=== PATIENT | female | born 1995 | race Caucasian/White ===

== ENCOUNTER 2018-06-15 10:02 | Inpatient (IN) | payer OTHER ==
[~2018-06-15] VITALS: Ht 167.6 cm; Wt 54.4 kg
--- NOTE | 2018-06-17 14:37 | NUR ---
PRE ASSESSMENT: A 22 year old female in intake. She is A/O X 4 with a steady gait. Her pupils are pinpoint. She is fidgety and presents with anxious mood and congruent affect. BP 115/77 P 116 R 16 T 98.0 02sat 98% She reports taking 1-2 mg of Xanax PO daily X 1 month. Last used 1 mg on 06/15/18.She reports smoking 1/2 Gm Heroin daily X 2 months in this pattern. Last smoked 2-3 hits this AM at 0930. She also reports smoking 1/2 gm Methamphetamine daily x 1 year. Last smoked 2-3 hits this am. She denies S/i and H/I. She denies PMH but does report being on 5150 when she was 18 years old with vague details as of why. She denies Sz history. She denies allergies. Will assess Pt on unit.
[2018-06-17 14:47] VITALS: BP 115/77
[2018-06-17] MEDS ORDERED: ONDANSETRON HCL 4 MG TABLET PO PRN (15:00)
[2018-06-17] MEDS ORDERED: MIRALAX 17 GM POWD.PACK PO PRN (15:00)
[2018-06-17] MEDS ORDERED: LOPERAMIDE HCL 2 MG CAPSULE PO PRN ×2 (15:00)
[2018-06-17] MEDS ORDERED: MAGNESIUM HYDROXIDE 30 ML LIQUID UDC PO PRN (15:00)
[2018-06-17] MEDS ORDERED: METHOCARBAMOL 750 MG TABLET PO PRN (15:00)
[2018-06-17] MEDS ORDERED: MAG HYDROX/AL HYDROX/SIMETH 30 ML LIQUID UDC PO PRN (15:00)
[2018-06-17] MEDS ORDERED: BUPRENORPHINE HCL 2 MG TAB.SUBL SL PRN (15:00)
[2018-06-17] MEDS ORDERED: ACETAMINOPHEN 325 MG TABLET PO PRN (15:00)
[2018-06-17] MEDS ORDERED: ONDANSETRON 4 MG/2 ML VIAL IM PRN (15:00)
[2018-06-17 15:07] LABS: *URINE HCG, QUAL NEGATIVE (NEGATIVE)
[2018-06-17 15:22] LABS: *AMPHETAMINE, URINE POSITIVE (NEGATIVE); *BARBITURATE, URINE NEGATIVE (NEGATIVE); *CANNABINOID, URINE POSITIVE (NEGATIVE); *COCCAINE, URINE NEGATIVE (NEGATIVE); *OPIATE, URINE POSITIVE (NEGATIVE); *PHENCYCLIDINE SCREEN,URINE NEGATIVE (NEGATIVE)
[2018-06-17] MEDS ORDERED: DIAZEPAM 5 MG TABLET PO PRN (15:30)
[2018-06-17] MEDS ORDERED: DIAZEPAM 10 MG TABLET PO PRN ×2 (15:30)
--- NOTE | 2018-06-17 15:50 | NUR ---
ADMISSION: Pt admitted for medically supervised withdrawal of Benzos and Opiates. She also uses Meth daily. Skin and body check completed.She has scars on her wrist and states she used to be a cutter but hasn't cut in a few years. She is 5 ft 6 inches and weighs 120 Lbs. She is mildly intoxicated with pinpoint pupils. Her skin is warm and dry.Her speech is soft and slightly slurred.COWS and CIWA deferred at this time. UDS and HCG collected. She presents with blunted affect and depressed mood. She denies S/I and H/I. She denies seizure hx. She denies allergies. She states she takes no home meds but did take antidepressants 5 years ago and doesn't think she needs them. Depression is her PMH. She had a suicide attempt at age 15 by trying to hang herself and was put on 5150 hold. She also voiced suicidal ideations x 2 at age 18 and was put on a hold x 2. V/S BP 115/77 P 116 R 16 T 98.0 02sat 98% Substance Use History: She reports taking 1-2 mg of Xanax PO daily X 1 month. Last used 1 mg on 06/15/18. She used Xanax Heroin and Meth for the first time 8 years ago. She reports smoking 1/2 Gm Heroin daily X 2 months in this pattern. Last smoked 2-3 hits this AM at 0930. She also reports smoking 1/2 gm Methamphetamine daily x 1 year. Last smoked 2-3 hits this am at 0930 She reports she has used IV a couple of times. The last time she used IV was in January and she overdosed. She was able to just smoke pot and drink ETOH for 3 years up until 1 year ago. She states she is having legal troubles,financial problems and relationship problems due to her drug use but is unable to stop despite negative consequences. She states the withdrawal s/s which include sweats,chills,body aches,anxiety,N/V are too much for her to handle on her own. She states the triggers that caused her to start using Meth and Heroin again after 3 years is that she got impatient and felt like her life should have gotten better quicker and couldn't handle negative emotions associated with that. She states she is unable to hold a job when using and exchanges sex for drugs when needed. Treatment history includes [facility] in [facility] for 28 days at age 17 and [facility] at age 18. She is not sure what will be different this time but states she wants a better life and feels very tired of living the way she is living. Oriented Pt to staff and unit. Reassured Pt that Nursing staff is available 18/06 and to utilize staff. Will provide safe and supportive environment. Addendum: 06/17/18 at 1651 by COREY TRAN RN Pt's UDS is positive for cannabis. She reports smoking Marijuana 1 joint, 2-3 X weekly. Last smoked 2 days ago on 06/15/18. Addendum: 06/17/18 at 1823 by COREY TRAN RN She denies a PCP.
[2018-06-17 16:00] VITALS: BP 109/61
--- NOTE | 2018-06-17 19:01 | NUR ---
END O F SHIFT: Pt was newly admitted this afternoon. She is not displaying S/S of W/D at this time and came in mildly intoxicated from Heroin and Meth use this morning. She is resting in bed and watching TV. Will pass shift report to oncoming night nurse.
--- NOTE | 2018-06-17 19:30 | NUR ---
START OF SHIFT Pt is a 22 y/o female admitted for medically supervised withdrawal from Benzos and Opiates.Pt received in room,resting in bed,watching TV.Pt is A/A/O X 4, c/o feeling tired with low energy.Appears dishevelled;Mood is sad and depressed;she denies having any suicidal thoughts at this time.She is not c/o any s/s of withdrawals at this time,stated that she used Heroin and Meth today in the morning.No c/o pain or distress noted,breathing is even and non labored,all safety measures in place,call weems is within reach,will continue to monitor.
[2018-06-17 19:32] LABS: BASOPHILS % (AUTO) 0.7 % (0.0-2.0); EOSINOPHILS # (AUTO) 0.1 K/uL (0.0-0.7); EOSINOPHILS % (AUTO) 2.9 % (0.0-7.0); HEMATOCRIT 39.2 % (31.2-41.9); HEMOGLOBIN 13.3 g/dL (10.9-14.3); LYMPHOCYTES # (AUTO) 1.8 K/uL (20.0-40.0); LYMPHOCYTES % (AUTO) 35.8 % (20.5-51.5); MEAN CORPUSCULAR HEMOGLOBIN 31.6 uug (24.7-32.8); MEAN CORPUSCULAR HGB CONC 34 g/dL (32.3-35.6); MONOCYTES # (AUTO) 0.4 K/uL (2.0-10.0); NEUTROPHILS # (AUTO) 2.6 K/uL (1.8-8.9); NEUTROPHILS % (AUTO) 51.6 % (38.5-71.5); PLATELET COUNT (AUTO) 247 K/uL (179-408); RED BLOOD CELL COUNT(AUTO) 4.22 MIL/uL (3.63-4.92)
[2018-06-17 19:46] LABS: AMYLASE 25 U/L (25-115); ETHANOL < 3 MG/DL (0-0); LIPASE 112 U/L (73-393)
[2018-06-17 19:51] LABS: ALANINE AMINOTRANSFERASE 28 U/L (14-59); ALKALINE PHOSPHATASE 48 U/L (50-136); ASPARTATE AMINOTRANSFERASE 14 U/L (15-37); BILIRUBIN,TOTAL 0.4 mg/dL (0.2-1.0); CARBON DIOXIDE 30 mmol/L (21-32); CHLORIDE 104 mmol/L (98-107); CREATININE 0.6 mg/dL (0.6-1.3); GLUCOSE 92 mg/dL (74-106); MAGNESIUM 2.1 mg/dL (1.8-2.4); POTASSIUM 3.7 mmol/L (3.5-5.1); TOTAL PROTEIN, SERUM 6.6 g/dL (6.4-8.2); UREA NITROGEN, BLOOD 13 mg/dL (7-18)
[2018-06-17 20:00] VITALS: BP 103/65
[2018-06-17] MEDS ORDERED: DIAZEPAM 10 MG TABLET PO SCH (21:00)
--- NOTE | 2018-06-17 22:00 | NUR ---
PT SEEN RESTING IN BED WITH EYES CLOSED,APPEARS TO BE ASLEEP SHE WENT DOWN TO SMOKE X 1,HAS BEEN IN BED ALL THE TIME.NO CO PAIN OR DISTRESS NOTED,WILL CONTINUE TO MONITOR.
[2018-06-18] VITALS: BP 101/62
--- NOTE | 2018-06-18 | NUR ---
COWS DEFERRED DUE TO PT BEING ASLEEP.V/S ARE STABLE.NO C/O PAIN OR DISTRESS NOTED.ALL SAFETY MEASURES IN PLACE WITH CALL PACHECO WITHIN REACH.WILL CONTINUE TO MONITOR.
[2018-06-18 04:00] VITALS: BP 110/73
--- NOTE | 2018-06-18 04:00 | NUR ---
COWS-8.PT IS FEELING ANXIOUS WITH HOT AND COLD FLASHES,C/O MYALGIA AND RESTLESS LEGS.
--- NOTE | 2018-06-18 04:00 | NUR ---
COWS=8.PT IS FEELING ANXIOS WITH HOT AND COLD FLASHES,C/O RESTLESS LEGS AND MYALGIA.
[2018-06-18] MEDS: CLONIDINE HCL 0.1 MG TABLET PO PRN (04:25)
--- NOTE | 2018-06-18 04:25 | NUR ---
PRN MEDS PT C/O ANXIETY/HOT,COLD FLASHES AND MYALGIA.PRN CLONIDINE 0.1MG PO AND ROBAXIN 750MG PO GIVEN.WILL MONITOR FOR EFFECTIVENESS.
--- NOTE | 2018-06-18 05:30 | NUR ---
PRN F/U PT IS CALM AND RESTING IN BED WITH EYES CLOSED.
--- NOTE | 2018-06-18 06:54 | NUR ---
END OF SHIFT Pt is a 22 y/o female admitted for medically supervised withdrawal from Benzos and Opiates.Pt is A/O X 4, c/o feeling tired with low energy.Appears dishevelled;Mood is sad and depressed;she denies having any suicidal thoughts at this time.LAST COWS is 8.PRN meds Clonidine and Robaxin were given and were effective.Pt slept 9 hours,fluid intake was 1000 mls,voided x 2.No c/o pain or distress noted at this time,breathing is even and non labored,all safety measures in place,call weems is within reach,will continue to monitor.
--- NOTE | 2018-06-18 07:45 | NUR ---
START OF SHIFT Pt is a 22 y/o female admitted for medically supervised withdrawal from benzos and opiates. Received pt in room, laying in bed, has a disheveled appearance, cooperative. Pt presents sweating, nausea, piloerection of the skin, nasal congestion, runny nose, sinus pressure, sinus headache, generalized pain 4/10, "feeling heavy," strange sound in the ear, pt states, "like a blast, a high pitch sound, happened a couple times already," fine tremors, no energy, depressive mood, restlessness, anxiety, yawning, pupils larger than normal. HR: 101. Encouraged pt to do deep breathing exercises for relaxation and to increase fluids as tolerated for hydration. Last COWS 8, clonidine and robaxin PRN given during restaurant shift leader. Side rails upx2, bed in low position, call light is within reach. Safety measures in place. Will continue to monitor closely.
[2018-06-18 08:00] VITALS: BP 101/60
--- NOTE | 2018-06-18 08:00 | NUR ---
COWS 17 Received pt in room, laying in bed, has a disheveled appearance. Pt presents pupils larger than normal, sweating, nausea, piloerection of the skin, nasal congestion, runny nose, sinus pressure, sinus headache, generalized pain 03/05, c/o "feeling heavy," strange sound in the ear, pt states, "like a blast, a high pitch sound, happened a couple times already," fine tremors, no energy, depressive mood, restlessness, anxiety, yawning. HR: 101. Encouraged pt to do deep breathing exercises for relaxation and to increase fluids as tolerated for hydration. Pt refused PRNs at this time. Requests to have ibuprofen later if headache persists. Addendum: 06/18/18 at 1931 by FLASH MORALES RN SHANIQUE Chinchilla
[2018-06-18] MEDS: MULTIVITAMINS,THERAPEUTIC TABLET PO SCH (08:29)
[2018-06-18] MEDS: BUPRENORPHINE HCL 2 MG TAB.SUBL SL SCH ×4 (08:30→21:31)
[2018-06-18] MEDS: DIAZEPAM 10 MG TABLET PO SCH ×2 (08:30→21:32)
[2018-06-18] MEDS ORDERED: TUBERCULIN,PURIF.PROT.DERIV. 5 TU/0.1 ML TEST ID ONE (09:00)
[2018-06-18] MEDS ORDERED: 5 DAY TAPER BUPRENORPHINE -SERENITY PROTOCOL SL PRN (09:00)
[2018-06-18] MEDS ORDERED: 3 DAY TAPER OF VALIUM-SERENITY PROTOCOL PO PRN (09:00)
[2018-06-18 12:00] VITALS: BP 109/62
[2018-06-18] MEDS: IBUPROFEN 600 MG TABLET PO PRN (12:50)
--- NOTE | 2018-06-18 12:50 | NUR ---
COWS 16 HR: 96. Pt continues to presents pupils larger than normal, sweating, nausea, piloerection of the skin, nasal congestion, runny nose, sinus pressure, sinus headache, generalized pain 4/10, fine tremors, no energy, depressive mood, restlessness, anxiety, agitation, yawning. Pt refused PRNs at this time. Ibuprofen given for sinus headache 5/10 pain. Encouraged pt to use non-pharmalogical methods for distraction and relaxation. Addendum: 06/18/18 at 1931 by FLASH MORALES RN SHANIQUE Bryant
--- NOTE | 2018-06-18 12:50 | NUR ---
PRN ibuprofen 600 mg po prn given for c/o sinus headache and pressure 5/10. Will monitor and reassess.
--- NOTE | 2018-06-18 13:50 | NUR ---
REASSESSMENT Pt reports ibuprofen as effective in decreasing sinus headache. will continue to monitor.
[2018-06-18] MEDS ORDERED: DIAZEPAM 5 MG TABLET PO SCH (15:00)
[2018-06-18 16:00] VITALS: BP 101/68
--- NOTE | 2018-06-18 16:30 | NUR ---
COWS 17 HR: 91. Pt states attending groups had given her increased anxiety. Pt continues to presents pupils larger than normal, sweating, generalized pain, intermittent nausea, piloerection of the skin, nasal congestion, runny nose, sinus pressure, sinus headache, fine tremors, no energy, depressive mood, lethargy, restlessness, anxiety, agitation, yawning. Pt refused PRNs at this time. Encouraged pt to use non-pharmalogical methods such as deep breathing exercises for distraction and relaxation. Addendum: 06/18/18 at 1932 by FLASH MORALES RN SHANIQUE Chinchilla
--- NOTE | 2018-06-18 18:32 | NUR ---
END OF SHIFT Last COWS 17 @1600. Pt has been isolative in room but went to groups stating that it has increased her anxiety. Pt has received ibuprofen 600mg po prn for sinus headache and was effective. Pt ate 50/50/75% of meals. Fluid intake 1500ml, voided x4, bm 0. Safety measures in place. Endorsement will be given to fast food shift supervisor nurse.
--- NOTE | 2018-06-18 19:30 | NUR ---
Start of shift note Received report from day shift Nurse. Patient is a 22 year old female admitted for Benzo/Opiate Withdrawal. Patient is on 3 day Valium and 5 day Subutex taper. Patient was given PRN Motrin. Last COWS 17 and CIWA 16. Per day shift , Patient will want something for sleep tonight. Patient in group at this time. Safety measures in place. Call light in reach. Will continue to monitor.
[2018-06-18 20:00] VITALS: BP 115/71
--- NOTE | 2018-06-18 20:00 | NUR ---
COWS and CIWA assessment Patient with flat affect. Patient states she anxious 6/10, noted restless, c/o hot and cold sweats, chills, goose bumps, yawning, abdominal cramping, stuffy nose, difficulty sleeping and muscle aches. COWS 16 and CIWA 13.
[2018-06-18] MEDS: diphenhydrAMINE 50 MG CAPSULE PO PRN (21:31)
--- NOTE | 2018-06-18 21:31 | NUR ---
PRN Benadryl administration Patient requests for sleep aid. Will monitor for effectiveness
[2018-06-19] VITALS: BP 99/60
--- NOTE | 2018-06-19 | NUR ---
PRN Benadryl re-assessment /COWS and CIWA Deferred Patient lying in bed with eyes closed. Respiration even and unlabored. Will continue to monitor.
--- NOTE | 2018-06-19 04:00 | NUR ---
COWS and CIWA assessment Patient lying in bed with eyes closed. Respiration even and unlabored. VS refused. Will continue to monitor.
--- NOTE | 2018-06-19 07:28 | NUR ---
End of shift note Patient Slept 8 hours. Fluid Intake 355 ml. Voided x 1. No BM . Monitored patient throughout shift. Patient compliant with medication and treatment plan. Scheduled medication and taper given as ordered, tolerated well and no adverse reaction. Patient states medications are effective in controlling her withdrawal symptoms. Patient presents with anxiety, restlessness, yawning, abdominal cramping, stuffy nose, hot and cold sweats, chills and goose bumps. Patient was given PRN Benadryl for sleep due to difficulty sleeping. Encouraged fluids. Safety measures in place. Call light in reach. Will continue to monitor. Last COWS 16 and CIWA 13.
--- NOTE | 2018-06-19 07:30 | NUR ---
START OF SHIFT Pt is a 22 y/o female admitted for medically supervised withdrawal from benzos and opiates. Pt is placed on a 3 day valium and 5 day subutex taper and tolerating well. Received pt laying in bed and had just awoken up. Pt has a disheveled appearance and a flat affect. Pt reports meds are effective for decreasing s/s of withdrawal. Pt presents sweating, nausea, intermittent piloerection of the skin, nasal congestion, runny nose, sinus pressure, sinus headache, generalized pain 3/10, fine tremors,, depressive mood, restlessness, anxiety, yawning, pupils larger than normal. HR: 91. Last COWS 16 and CIWA 13. Benadryl PRN was given during mine shifter. Side rails upx2, bed in low position, call light is within reach. Safety measures in place. Will continue to monitor closely.
[2018-06-19 08:00] VITALS: BP 110/67
--- NOTE | 2018-06-19 08:00 | NUR ---
COWS 16 AND CIWA 13 Received pt laying in bed and had just awoken up. Pt has a disheveled appearance and a flat affect. Pt reports meds are effective for decreasing s/s of withdrawal. Pt presents sweating, nausea, intermittent piloerection of the skin, nasal congestion, runny nose, sinus pressure, sinus headache, generalized pain 3/10, fine tremors,, depressive mood, restlessness, anxiety, yawning, pupils larger than normal. HR: 91. Pt declines prn meds at this time.
[2018-06-19] MEDS: DIAZEPAM 5 MG TABLET PO SCH ×3 (08:46→20:58)
[2018-06-19] MEDS: MULTIVITAMINS,THERAPEUTIC TABLET PO SCH (08:46)
[2018-06-19] MEDS: BUPRENORPHINE HCL 2 MG TAB.SUBL SL SCH ×3 (08:46→20:58)
[2018-06-19 12:00] VITALS: BP 114/74
--- NOTE | 2018-06-19 12:00 | NUR ---
COWS 15 AND CIWA 13 Pt continues to presents anxiety, restlessness, sweating, nausea, intermittent piloerection of the skin, nasal congestion, runny nose, sinus pressure, generalized pain 3/10, fine tremors,, depressive mood, yawning, pupils larger than normal. HR: 90. Pt declines prn meds at this time and wants to go smoke.
[2018-06-19 13:07] LABS: HEPATITIS B SURFACE AG Negative (Negative)
--- NOTE | 2018-06-19 15:33 | NUR ---
NURSING NOTE Pt was frantically moving around, appears highly anxious, and agitated; pt is pacing around her room. Pt stated, "I am freaking out, I feel like they are trying to control who is I can talk to here. I want to leave right now. I need to leave right now." Reassured pt that the staff are not trying to control who she talks to. Multiple staff members are talking to pt at this time trying to redirected patient.
[2018-06-19 16:00] VITALS: BP 108/76
[2018-06-19] MEDS: CLONIDINE HCL 0.1 MG TABLET PO PRN (16:36)
--- NOTE | 2018-06-19 16:36 | NUR ---
COWS 15 AND CIWA 13 Pt is highly emotional, pacing, crying, stated she wanted to leave AMA but was able to redirected however pt is still upset. Pt verbalized a staff member was being "insensitive" and thought he did not care at all. Pt also states that she feels that she does not need to be on a taper for this long and she feels fine. Reassured pt and explained taper meds suppress s/s of withdrawal. Pt continues to present increased anxiety, restlessness, sweating, nausea, piloerection of the skin, nasal congestion, runny nose, headache, generalized pain, fine tremors, depressive mood, yawning, and pupils larger than normal. HR: 115. Clonidine 0.1 mg po prn given. Will continue to monitor. Addendum: 06/19/18 at 1653 by FLASH MORALES RN COWS 20 AND 19 @1600
--- NOTE | 2018-06-19 19:18 | NUR ---
START OF SHIFT NOTE: The patient is a 22 year old male continues 3 day Subutex and 3 day Valium Tapers ordered for Benzodiazepines (Xanax), Opioid (Heroin) and Methamphetamine withdrawal, which tolerated well. The patient remains compliant with treatment, medications, and diet regime. The patient is alert and oriented x4, ambulatory with stable gait. She is cooperative, with soft, clear speech. The patient appears worried, with flat affect and anxious mood. Emotional support and reassuring provided. The patient encouraged to express her feelings. The most recent COWS=16, CIWA=13 at 1600: During day shift patient c/o anxiety, agitation, irritability, dilated pupil, restlessness, fatigue, nervousness, tremors, generalized body aches, sweating, nasal congestion, and yawning. Encouraged to fluids intake as tolerated. Encouraged to attend group activities. Safe and calm environment with minimized noises was provided. All needs met. Safety measures: Call light within reach, bed is locked in lowest position, and padded bed rails up bilaterally. The patient endorsed by outgoing day shift nurse. Will continue to monitor closely. Addendum: 06/20/18 at 0523 by YG MARTINEZ RN The patient is a 22 year old female.
--- NOTE | 2018-06-19 19:18 | NUR ---
END OF SHIFT Pt has been agitated, anxious, highly emotional, wanting to leave AMA during shift but able to be redirected. Pt states she feels as though she does not need to be on a taper this long. Pt requests to be able to leave sooner. Last COWS 20 CIWA 19. Clonidine prn given. Safety measures in place. Endorsement given to inspector weights and measures nurse.
[2018-06-19 20:00] VITALS: BP 101/65
--- NOTE | 2018-06-19 20:00 | NUR ---
COWS/CIWA ASSESSMENT. COWS=14, CIWA=14 at 2000: The patient presented with anxiety, agitation, irritability, stomach cramps, pins and needles sensations, dilated pupils, restlessness, fatigue, nervousness,tremors, generalized body aches, sweating, nasal congestion, and yawning. All needs met. Safety measures: Call light within reach, bed is locked in lowest position, padded bed rails up x2. Will continue to monitor closely.
[2018-06-19] MEDS ORDERED: DIAZEPAM 5 MG TABLET PO SCH (21:00)
[2018-06-20] VITALS: BP 92/56
--- NOTE | 2018-06-20 | NUR ---
COWS/CIWA ASSESSMENT. COWS=13, CIWA=12 at 0000: The patient presented with anxiety, agitation, irritability, piloerection of skin, pins and needles sensations, dilated pupils, restlessness, fatigue, nervousness, tremors, sweating, nasal congestion, and yawning. All needs met. Safety measures: Call light within reach, bed is locked in lowest position, padded bed rails up x2. Will continue to monitor closely.
[2018-06-20 04:00] VITALS: BP 95/64
--- NOTE | 2018-06-20 04:00 | NUR ---
COWS/CIWA ASSESSMENT. COWS=14, CIWA=12 at 0000: The patient presented with anxiety, agitation, irritability, piloerection of skin, pins and needles sensations, dilated pupils, restlessness, fatigue, nervousness, tremors, sweating, nasal congestion, and yawning. All needs met. Safety measures: Call light within reach, bed is locked in lowest position, padded bed rails up x2. Will continue to monitor closely. Addendum: 06/20/18 at 0455 by YG MARTINEZ RN COWS=14, CIWA=12 at 0400
--- NOTE | 2018-06-20 07:24 | NUR ---
END OF SHIFT NOTE: Endorsed patient is a 22 year old female presented for Benzodiazepines (Xanax), Opioid (Heroin), and Methamphetamine withdrawal, continues 3 day Valium and 3 day Subutex tapers, which tolerated well. COWS=14, CIWA=14 at 2000. COWS=13, CIWA=12 at 0000. Latest COWS=14, CIWA=12 at 0400. The patient presented with anxiety, agitation, irritability, stomach cramps, mild pins and needles sensations, dilated pupils, restlessness, fatigue, nervousness, tremors, generalized body aches, sweating, nasal congestion, and yawning. VSWNL. Respirations are even and unlabored. Patient denies SOB, chest pain, and cough. Skin is intact, warm, and dry to touch. No PRN Medications administrated during my shift. Encouraged to fluids intake as tolerated. Safe and calm environment with minimized noises was provided. Patient slept for 10 hours, intake 500 ml, voided x4. All needs met. Safety measures: Call light within reach, bed in the lowest position and locked, padded rails up x2. Patient endorsed to day shift nurse.
--- NOTE | 2018-06-20 07:39 | NUR ---
START OF SHIFT Pt is a 22 yr old female admitted on 06/17/18 for Benzo/opiate withdrawal and is on 3 day Valium taper and 5 day Subutex taper as ordered. Received report from night stocker nurse. No PRN's were given during the night. Last COWS score was 14 and CIWA score was 12 at 0400. Pt slept for 10 hrs and remains in bed sleeping with respirations even and unlabored. Skin is intact, warm and dry to touch. Pt room is noted with spilled drinks on the bed side table and dirty clothes on the floor. Pt is on fall and seizure precautions. Safety precautions observed. Call light is within reach. will continue to monitor.
[2018-06-20 08:00] VITALS: BP 93/56
[2018-06-20] MEDS: DIAZEPAM 5 MG TABLET PO SCH ×2 (08:51→21:40)
[2018-06-20] MEDS: MULTIVITAMINS,THERAPEUTIC TABLET PO SCH (08:51)
--- NOTE | 2018-06-20 08:53 | NUR ---
COWS 5, CIWA 6 Pt is noted with anxiety m/b difficulty staying still. Pt is noted with flat affect. Pt is c/o chills. Fine tremors are felt on BUE.
[2018-06-20] MEDS ORDERED: BUPRENORPHINE HCL 2 MG TAB.SUBL SL SCH (09:00)
--- NOTE | 2018-06-20 10:53 | NUR ---
Therapist prompted client to attend group therapy sessions.
[2018-06-20 12:12] VITALS: BP 106/74
--- NOTE | 2018-06-20 12:55 | NUR ---
COWS 6 and CIWA 6 Pt is c/o anxiety with agitation, chills and sweats. Pt is noted with flat affect. Fine tremors are felt on BUE. Encouraged increase fluid intake and offered pt to attend group therapy. Will continue to monitor
[2018-06-20] MEDS: BUPRENORPHINE HCL 2 MG TAB.SUBL SL SCH ×3 (15:00→21:41)
--- NOTE | 2018-06-20 15:48 | NUR ---
MEDICATION REFUSED Pt refused to take Subutex 2mg SL as scheduled at 1500. Pt was noted with anxiety and agitation and was stating she want to leave AMA. Pt was spoken to in regards to the risks of leaving AMA, pt was passive and stated, "I just want my things and go". Pt was then spoken to by Administration and was able to convince the pt to continue with plan of care. Pt continued to refuse to take Subutex.
[2018-06-20 16:00] VITALS: BP 103/69
--- NOTE | 2018-06-20 17:13 | NUR ---
MEDICATION ADMINISTERED /COWS and CIWA score Pt stated of continuing with her plan of care and stated she wanted to take Subutex 2mg that she refused at 1500. Spoke with Dr. De La Paz, per MD banda to administer Subutex 2mg SL at this time. Subutex 2mg SL was administered. Medication was gabrielle well. COWS score is 9 and CIWA score 10 for increase anxiety with agitation, tachy, chills, stuffy nose and sweats. Will continue to monitor.
--- NOTE | 2018-06-20 18:53 | NUR ---
START OF SHIFT NOTE: Endorsed 22 year old female is alert and oriented x4, cooperative, with soft, clear speech. She is ambulatory with stable gait. The patient tolerated well with 3 day Subutex and 3 day Valium Tapers ordered for Benzodiazepines (Xanax), Opioid (Heroin) and Methamphetamine withdrawal. COWS=9, CIWA=10 at 1600. Patient presented with symptoms of withdrawal as anxiety, agitation, irritability, nervousness, tremors, generalized body aches, sweating, nasal congestion, yawning, restlessness, and fatigue. Encouraged to fluids intake as tolerated. Encouraged to attend group activities. All needs met. Safety measures: Call light within reach, bed is locked in lowest position, and padded bed rails up bilaterally. Safe and calm environment with minimized noises was provided. The patient endorsed by outgoing day shift nurse. Will continue to monitor closely.
--- NOTE | 2018-06-20 18:53 | NUR ---
END OF SHIFT Pt is a 22 yr old female, AA&Ox4. pt has been noted with anxiety, agitation, increase fatigue, flat affect, tachy and c/o sweats and chills during the day. Pt was encouraged to attend group therapy during the day. Pt was able to attend the morning group. No PRN's were given during the day. Last COWS score was 9 and CIWA score was 10. Pt is on fall and seizure precautions. Call light is within reach. Endorsed to material handler 1st shift nurse to continue with care.
[2018-06-20 20:00] VITALS: BP 110/68
--- NOTE | 2018-06-20 20:00 | NUR ---
COWS/CIWA ASSESSMENT: COWS=12, CIWA=12: Patient presented with anxiety, agitation, depression, nervousness, irritability, sweating, tremors, that can be felt, not observe, nasal congestion, and fatigue. Safe and calm environment with minimized noises was provided. All needs met. Safety measures in place: Call light within reach, bed is locked in lowest position, and padded bed rails up bilaterally.
[2018-06-21] VITALS: BP 90/53
--- NOTE | 2018-06-21 | NUR ---
COWS/CIWA ASSESSMENT: COWS=10, CIWA=11: The patient noted with anxiety, agitation, depression, nervousness, irritability, sweating, tremors, that can be felt, not observe, nasal congestion, restlessness,fatigue, and yawning. Safe and calm environment with minimized noises was provided. All needs met. Safety measures in place: Call light within reach, bed is locked in lowest position, and padded bed rails up bilaterally.
[2018-06-21 04:00] VITALS: BP 97/64
--- NOTE | 2018-06-21 04:00 | NUR ---
COWS/CIWA ASSESSMENT. COWS=12, CIWA=10 at 0400. The patient c/o anxiety,agitation, irritability, nasal congestion, mild pins and needles sensations, nervousness, piloerection of skin, tremors, sweating, yawning, moderately fidgety, restlessness, and fatigue. Calm and safety environment with minimized noises was provided. All needs met. Safe and calm environment with minimized noises was provided. Safety measures in the place: Call light within reach, bed in the lowest position and locked, padded rails up x2.
--- NOTE | 2018-06-21 07:22 | NUR ---
END OF SHIFT NOTE: 22 year old female presented for Benzodiazepines (Xanax), Opioid (Heroin), and Methamphetamine withdrawal. She is tolerated well which ordered 3 day Valium and 3 day Subutex tapers. The patient remains compliant with treatment, medications, and diet regime. Withdrawal symptoms were closely monitored. The patient is alert and oriented x4, ambulatory, with steady gait, clear, and soft speech. Initial COWS=12, CIWA=12 at 2000. COWS=10, CIWA=11 at 0000. The most recent COWS=12, CIWA=10 at 0400. The patient c/o anxiety, agitation, irritability, nasal congestion, mild pins and needles sensations, nervousness, piloerection of skin, tremors, sweating, yawning, moderately fidgety, restlessness, and fatigue. VSWNL. Respirations are even and unlabored. Patient denies SOB, chest pain, and cough. Skin remains intact, warm, and dry to touch. No PRN Medications administrated during my shift. Encouraged to fluids intake as tolerated. Safe and calm environment with minimized noises was provided. Patient slept for 7 hours, intake 1,500 ml, voided x2. All needs met. Safety measures: Call light within reach, bed in the lowest position and locked, padded rails up x2. Patient endorsed to day shift nurse.
--- NOTE | 2018-06-21 07:30 | NUR ---
START OF SHIFT Pt 22 y/o female admitted for bzo/opi withdrawal. Pt received in room awake watching television. Pt alert and oriented to name, place, and time. Perrla. Skin warm and moist to touch. Bilateral hand tremors noted. Respirations even and unlabored. Appears disheveled and unkempt. Empty drink bottles scattered throughout the room. Encouraged to maintain hygiene. Anxious this morning, not able to sit still. Encouraged to maintain hygiene. It was reported that pt slept for 7 hours last night. Completed a 3 day valium taper. Pt is on a 5 day subutex taper and is on day 4. Bed on lowest position with side rails x2 up for safety. Call light within reach.
[2018-06-21 08:00] VITALS: BP 103/60
--- NOTE | 2018-06-21 08:00 | NUR ---
COWS / CIWA ASSESSMENT cows=13 ciwa =14. Bilateral hand tremors noted. Anxious and restless, not able to sit still while laying in bed. Pressured speech noted. Complaints of chills and sweats. States, "I feel a little uneasy when i woke up today.".
[2018-06-21] MEDS: MULTIVITAMINS,THERAPEUTIC TABLET PO SCH (08:51)
[2018-06-21] MEDS: BUPRENORPHINE HCL 2 MG TAB.SUBL SL SCH ×3 (08:52→20:45)
--- NOTE | 2018-06-21 12:00 | NUR ---
COWS/ CIWA ASSESSMENT cows=13 ciwa=11. Anxious and restless, observed pacing. Easily irritable with pressured, rushed speech noted. Bilateral hand tremors noted. Difficulty concentrating with generalized discomfort. Will continue to monitor.
[2018-06-21 13:00] VITALS: BP 111/96
[2018-06-21] MEDS: CLONIDINE HCL 0.1 MG TABLET PO PRN (14:41)
--- NOTE | 2018-06-21 14:42 | NUR ---
PRN CATAPRES Pt states feels anxious. Restless legs. Not able to sit still. Catapres po prn per MD order given and tolerated well.
--- NOTE | 2018-06-21 15:42 | NUR ---
PRN AB EVAL pt states feels less anxious. Observed watching television.
[2018-06-21 16:00] VITALS: BP 114/78
--- NOTE | 2018-06-21 16:00 | NUR ---
COWS/ CIWA ASSESSMENT cows=13 ciwa=11. Anxious and restless, not able to sit still. Complaint of headache. bilateral hand tremors noted. Irritable. Will continue to monitor.
[2018-06-21] MEDS: IBUPROFEN 600 MG TABLET PO PRN (17:12)
--- NOTE | 2018-06-21 17:14 | NUR ---
PRN IBUPROFEN Pt with headache 05/05. Ibuprofen po prn per MD order given and tolerated well.
--- NOTE | 2018-06-21 18:52 | NUR ---
END OF SHIFT Pt 22 y/o female admitted for bzo/opi withdrawal. Pt alert and oriented to name, place, and time. Perrla. Skin warm and moist to touch. Respirations even and unlabored. Bilateral hand tremors noted. Anxious and irritable this morning. Also with tearful episodes this afternoon. Pt did not want disclose what triggered the anxiety, even with prompting. Isolative with minimal peer interaction. Guarded on approach. Appears disheveled and unkempt. Empty drink bottles scattered throughout the room. Encouraged to maintain hygiene. Attended group activity. Seen by MD today. Medication complaint. Completed a 3 day valium and is on a 5 day subutex taper and is on day 4. Last cows= 13ciwa= 11@1600. Bed on lowest position with side rails x2 up for safety. Call light within reach.
--- NOTE | 2018-06-21 18:52 | NUR ---
START OF SHIFT NOTE: The patient is a 22 year old female presented for Benzodiazepines (Xanax), Opioid (Heroin) and Methamphetamine withdrawal, completed ordered 3 day Valium Taper, and continues ordered 5 day Subutex Taper, which tolerated well. The patient remains compliant with treatment, medications, and diet regime. She is alert and oriented x4, cooperative, with steady gait, soft, clear speech. The patient appears worried, serna, and emotional. Encouraged verbalization of feelings, fears, and anxiety. Encouraged use of relaxation skills. Latest COWS=13, CIWA=11 at 1600: The patient presented with moderate symptoms of withdrawal such as anxiety, agitation, irritability, nervousness, tremors, stomach cramps, generalized body aches, sweating, nasal congestion, flashed face, piloerection of skin, yawning, restlessness, and fatigue. VSWNL. Respirations are even and unlabored. Patient denies SOB, chest pain, and cough. Skin is intact, warm, and dry to touch. Encouraged to fluids intake as tolerated. Encouraged to attend group activities. All needs met. Safety measures: Call light within reach, bed is locked in lowest position, and padded bed rails up bilaterally. Safe and calm environment with minimized noises was provided. The patient endorsed by outgoing day shift nurse. Will continue to monitor closely.
[2018-06-21 20:00] VITALS: BP 107/71
--- NOTE | 2018-06-21 20:00 | NUR ---
COWS/CIWA ASSESSMENT: COWS=14,CIWA=14 at 2000: The patient presented with moderate symptoms of withdrawal such as anxiety, agitation, irritability, Goosebump, clammy skin, stomach cramps, pins and needles sensations, tremors, restlessness, fatigue, nervousness, sweating, nasal congestion, and yawning. Safe and calm environment with minimized noises was provided. All needs met. Safety measures: Call light within reach, bed in the lowest position and locked, padded rails up x2. Patient endorsed by day shift nurse.
[2018-06-21] MEDS: diphenhydrAMINE 50 MG CAPSULE PO PRN (20:44)
--- NOTE | 2018-06-21 20:44 | NUR ---
PRN BENADRYL 50 MG 1 CAPSULE PO ADMINISTRATION PRN Benadryl 50 mg PO administrated as ordered for insomnia with full glass of water. Patient tolerated well. Safe and calm environment with minimized noises was provided. All needs met. Safety measures in the place: Call light within reach, bed locked in the lowest position, padded rails up x2. Will continue to monitor closely.
--- NOTE | 2018-06-21 21:44 | NUR ---
PRN BENADRYL PO RE-ASSESSMENT PRN Benadryl 50 mg PO administrated at 2043 was effective. The patient is sleeping. RR: 15. Respirations are even and unlabored. Safe and calm environment with minimized noises was provided. All needs met. Safety measures in the place: Call light within reach, bed locked in the lowest position, and padded rails up x2. Will continue to monitor closely.
[2018-06-22] VITALS: BP 93/53
--- NOTE | 2018-06-22 | NUR ---
COWS/CIWA ASSESSMENT: COWS=12, CIWA=12 at 0000: The patient presented with anxiety, agitation, irritability, Goosebump, clammy skin, stomach cramps, nausea, pins and needles sensations, tremors, somnolence, restlessness, fatigue, nervousness, sweating, nasal congestion, and yawning. Safe and calm environment with minimized noises was provided. All needs met. Safety measures: Call light within reach, bed in the lowest position and locked, padded rails up x2. Patient endorsed by day shift nurse.
[2018-06-22 04:00] VITALS: BP 93/63
--- NOTE | 2018-06-22 04:00 | NUR ---
COWS/CIWA ASSESSMENT: COWS=11, CIWA=10 at 0400: Patient presented with anxiety, agitation, irritability, clammy skin, stomach cramps, pins and needles sensations, tremors, restlessness,fatigue, nervousness, sweating, nasal congestion, and yawning. Safe and calm environment with minimized noises was provided. All needs met. Safety measures: Call light within reach, bed in the lowest position and locked, padded rails up x2.
--- NOTE | 2018-06-22 07:21 | NUR ---
END OF SHIFT NOTE Presented patient is a 22 year old female admitted for Benzodiazepines (Xanax), Opioid(Heroin),Methamphetamine withdrawal, completed 3 day Valium taper, which tolerated well. The patient continues 5 day Subutex Taper. Patient remains compliant with treatment, medications,and diet regime. The patient is alert and oriented x4, cooperative, with steady gait, clear soft speech. Affect anxious. Mood flat. Initial COWS=12, CIWA=12 at 2000, COWS=11, CIWA=11 at 0000. Last COWS=11, CIWA=10 at 0400. Patient presented with anxiety, agitation, depression, irritability, nervousness, clammy skin, stomach cramps, pins and needles sensations, myalgia, tremors, somnolence, sweating, nasal congestion, restlessness, fatigue, and yawning. No S/S of distress noted. Respirations are unlabored and even. Skin is intact, warm and dry to touch. last shift nurse manager. Safe and calm environment with minimized noises was provided. Patient slept for 9 hours, intake 355 ml, voided x2. All needs met. Safety measures: Call light within reach, bed is locked in the lowest position, and padded bed rails up x2. Patient endorsed to day shift nurse.
[2018-06-22 08:00] VITALS: BP 92/60
--- NOTE | 2018-06-22 08:05 | NUR ---
START OF SHIFT: Received Pt A/O x 4. She presents with blunted affect and apathetic mood. She repots some intermittent anxiety. She c/o body aches and restlessness.COWS 7 CIWA 6. She states she is attending groups and she interacts with peers. Encouraged increased fluids to assist in facilitating detox process. Will continue to monitor and manage s/s of w/d.
[2018-06-22] MEDS: MULTIVITAMINS,THERAPEUTIC TABLET PO SCH (08:11)
[2018-06-22] MEDS ORDERED: BUPRENORPHINE HCL 2 MG TAB.SUBL SL SCH (09:00)
[2018-06-22 12:00] VITALS: BP 108/62
[2018-06-22 16:00] VITALS: BP 124/71
[2018-06-22] MEDS ORDERED: DIPH50CA37 PO (17:24)
--- NOTE | 2018-06-22 18:39 | NUR ---
END OF SHIFT: Pt completed Subutex taper this am. Last COWS 7 CIWA 8 She attended groups and interacted with peers. She is scheduled for discharge for tomorrow morning. She continues to present with an apathetic mood. She states she is going home and chooses not to do a RTC. [facility].
--- NOTE | 2018-06-22 19:15 | NUR ---
Start of Shift Note: Patient is a 22 y.o male admitted for medically supervised withdrawal from Xanax & Heroin use. Patient is alert & oriented x4. Pt completed her Valium & Subutex taper and she is scheduled to be discharged tomorrow to home. Pt verbalized readiness to be discharge. She appears slightly anxious with a worried affect. She denies pain/discomfort at this time. No N/V/D. Last COWS 7 CIWA 8. No PRN Received during the day. Continue to encourage to increase fluid intake for hydration. Educated pt of current plan of care for the night and medication regimen. Safety measures in place. Will continue to monitor patient.
[2018-06-22 20:00] VITALS: BP 95/62
--- NOTE | 2018-06-23 | NUR ---
Vitals/COWS/CIWA deferred Patient refused vitals. Patient in bed with eyes close. Patient appears comfortable. Respiration even & unlabored. Unable to assess COWS & CIWA at this time and will reassess when pt is awake. Safety measures in place. Will continue to monitor patient.
--- NOTE | 2018-06-23 04:00 | NUR ---
Vitals/COWS/CIWA deferred Patient refused vitals. Patient still asleep in bed at this time. Patient appears comfortable. Respiration even & unlabored. Unable to assess COWS & CIWA at this time and will reassess when pt is awake. Safety measures in place. Will continue to monitor patient.
--- NOTE | 2018-06-23 07:10 | NUR ---
End of Shift Note: Continue to closely monitor patient. Patient is alert & oriented x4. She completed her Subutex and Valium taper and she is scheduled to be discharge today. Last COWS 5 CIWA 6. No PRN medications received during my shift. Pt remained stable and vitals remained WNL. She slept for a total of 9 hours. Fluid intake 1296 ml, Voided 3x with no bowel movement. All needs attended. Safety measures in place. Will endorse pt to day shift nurse.
--- NOTE | 2018-06-23 07:55 | NUR ---
START OF SHIFT: Received Pt A/O x 4. She presents with blunted affect and apathetic mood. She reports some anxiety this am.Discharge in progress for this morning. She c/o body aches and restlessness. COWS 4 CIWA 6. She states she is being picked up by her boyfriend. Encouraged her to attend 12 step meetings when she leaves. Pt does not appear motivated to stay abstinent. Will continue with discharge process.
[2018-06-23 08:00] VITALS: BP 107/69
[2018-06-23] MEDS: MULTIVITAMINS,THERAPEUTIC TABLET PO SCH (08:27)
--- NOTE | 2018-06-23 09:40 | NUR ---
DISCHARGE: Pt is A/O X4. She denies S/I and H/I. Pt is medically cleared for discharge. All belongings returned. Educated pt on discharge instructions. Pt expressed verbal understanding of education. She states she will attend 12 step meetings. ROUGHER HELPER escorted Pt to [facility] where she was transported by boyfriend home at 0935.
== END 2018-06-23 09:35 | disposition home or self-care (01) | DRG 895 ==
LOC: SRC 06-17 14:09
PROVIDERS: ADMIT Family Medicine Addiction Medicine; ATTEND Family Medicine Addiction Medicine
PROC: HZ2ZZZZ Detoxification Services for Substance Abuse Treatment (ICD-10-PCS; principal; 2018-06-17)
PROC: HZ41ZZZ Group Counseling for Substance Abuse Treatment, Behavioral (ICD-10-PCS; 2018-06-18)
PROC: HZ31ZZZ Individual Counseling for Substance Abuse Treatment, Behavioral (ICD-10-PCS; 2018-06-20)
DX: F11.23 Opioid dependence with withdrawal (principal); Z91.5 Personal history of self-harm; Z81.1 Family history of alcohol abuse and dependence; F17.210 Nicotine dependence, cigarettes, uncomplicated; F41.9 Anxiety disorder, unspecified; F39 Unspecified mood [affective] disorder; F15.23 Other stimulant dependence with withdrawal; F12.90 Cannabis use, unspecified, uncomplicated; F13.239 Sedative, hypnotic or anxiolytic dependence with withdrawal, unspecified
CPT/HCPCS: 36415; 70030-TC; 80307; 80324; 80346; 80349; 80361; 83690; 83735; 84703; 85025; 86580; 86592; 86705; 86803; 87340; 87806; G0480; Q0163